=== PATIENT | female | born 1955 | race Asian ===

== ENCOUNTER 2024-11-21 10:57 | Emergency (ER) | payer OTHER ==
[2024-11-21 11:29] VITALS: BP 163/83; PULSE 58; RESP 20; TEMP 98.2; BMI 19.0
[2024-11-21] MEDS: IBUPROFEN 600 MG TABLET (FP) PO ONE (12:03)
[2024-11-21] MEDS: LIDOCAINE 5% TOPICAL PATCH TP ONE (12:03)
[2024-11-21] MEDS ORDERED: LIDOCAINE PATCH REMOVAL MC ONE (22:00)
== END 2024-11-21 14:41 | disposition home or self-care (01) ==
LOC: FER 10:57
DX: M25.521 Pain in right elbow (principal)
CPT/HCPCS: 73070-TC-RT-FY; 73090-TC-RT-FY; 73200-TC-RT; 93971; 99284-25